=== PATIENT | male | born 1955 | race Caucasian/White ===

== ENCOUNTER 2017-04-13 10:42 | Emergency (ER) | payer MEDICARE, OTHER ==
[~2017-04-13] VITALS: Ht 172.7 cm; Wt 72.3 kg
[~2017-04-13 10:42] MED LIST: IVIG; LORA10TA7; METH2.5; PRED5PAK; SERT50
[2017-04-13 10:48] VITALS: BP 130/77; PULSE 80; RESP 18; TEMP 97.9; O2SAT 95
[2017-04-13] MEDS ORDERED: METO25TA3 PO (11:05)
[2017-04-13] MEDS ORDERED: LOSA50TA PO (11:05)
[2017-04-13] MEDS ORDERED: LEVO100T5 PO (11:05)
[2017-04-13] MEDS ORDERED: RANI150T PO (11:05)
[2017-04-13] MEDS ORDERED: PANT40TA3 PO (11:05)
[2017-04-13] MEDS ORDERED: PRED5TAB PO (11:05)
[2017-04-13] MEDS ORDERED: LEVO500T8 PO (11:05)
--- NOTE | 2017-04-13 11:20 | RADRPT ---
EXAM DATE/TIME: 04/13/2017 11:08 [place] COMPARISON: No previous studies available for comparison. INDICATIONS : Chronic pneumonia. Cough/congestion.fever. MEDICAL HISTORY : Hypercholesterolemia. Gastroesophageal reflux disease. Hypertension. Thyroid disease. Irregular h eart beat. Pneumonia. Chemotherapy. Tumor in neck. SURGICAL HISTORY : Pacemaker. Cholecystectomy. ENCOUNTER: Initial ACUITY: 3 days PAIN SCORE: 0/10 LOCATION: chest FINDINGS: The cardiac silhouette is normal in transverse diameter. A bipolar pacemaker is in place via a left s ided approach. There are probable chronic fibrotic changes bilaterally. There is no evidence of pneu monia. CONCLUSION: 1. There is no evidence of pneumonia. 2. Probable bibasilar fibrosis Wally Ventura MD on April 13, 2017 at 11:17 Board Certified Radiologist. This report was verified electronically.
[2017-04-13 11:25] LABS: BASOPHIL # 0.3 TH/MM3 (0-0.2); BASOPHIL % 2.9 % (0.0-2.0); EOSINOPHIL # 0.1 TH/MM3 (0-0.4); EOSINOPHIL % 0.7 % (0.0-4.0); HEMATOCRIT 45.7 % (39.0-51.0); HEMO FLAGS DIFF FINAL; LYMPH % 5.5 % (9.0-44.0); LYMPHOCYTE # 0.7 TH/MM3 (1.0-4.8); MEAN CELL VOLUME 88.8 FL (80.0-100.0); MEAN CORPUSCULAR HEMOGLOBIN 29.6 PG (27.0-34.0); MEAN CORPUSCULAR HGB CONC 33.4 % (32.0-36.0); MONO % 6.1 % (0.0-8.0); NEUT % 84.8 % (16.0-70.0); PLATELET COUNT 111 TH/MM3 (150-450); RED BLOOD COUNT 5.15 MIL/MM3 (4.50-5.90); RED CELL DISTRIBUTION WIDTH 14.9 % (11.6-17.2); WHITE BLOOD COUNT 11.8 TH/MM3 (4.0-11.0)
[2017-04-13 11:33] LABS: CHLORIDE 103 MEQ/L (98-107); SODIUM (NA) 137 MEQ/L (136-145)
[2017-04-13 11:37] LABS: ANION GAP 9 MEQ/L (5-15); BICARBONATE 25.3 MEQ/L (21.0-32.0); BLOOD UREA NITROGEN 16 MG/DL (7-18)
[2017-04-13 11:40] LABS: ALT (GPT) 48 U/L (12-78); AST (GOT) 41 U/L (15-37); GLOMERULAR FILTRATION RATE 76 ML/MIN (>89)
[2017-04-13 11:42] LABS: TOTAL BILIRUBIN ADULT 0.6 MG/DL (0.2-1.0)
[2017-04-13 11:43] LABS: ALKALINE PHOSPHATASE 137 U/L (45-117)
[2017-04-13 12:26] VITALS: BP 137/82; PULSE 75; RESP 16; O2SAT 95
[2017-04-13] MEDS ORDERED: cefTRIAXone INJ 1,000 MG in SODIUM CHLORIDE 0.9% INJ 100 ML IV ONE (12:30)
[2017-04-13] MEDS ORDERED: ZITHTAB PO (13:32)
--- NOTE | 2017-04-13 13:32 | PD ---
HPI Chief Complaint: Cold / Flu Symptoms Time Seen by Provider: 10:59 Travel History International Travel<30 days: No Contact w/Intl Traveler<30days: No Traveled to known affect area: No History of Present Illness HPI Patient is a 62-year-old male who comes to the ED because he believes he has pneumonia. He had neck cancer in 2002 and since then has had issues with his immune system and several episodes of pneumonia. He receives IVIG infusions every 10 weeks. He says he called his doctor in [place] who prescribed him Levaquin. He has been taking this for 3 days, but has not seen any improvements. He says he gets shaking chills, but has not taken his temperature. He says his symptoms have been going on for the past week. He says he has a cough, but he always has a cough. PFSH Past Medical History Heart Rhythm Problems: Yes Cancer: Yes (TUMOR BEHIND NECK-DERMATOCYSTIS) High Cholesterol: Yes Chemotherapy: Yes (FINISHED) Diminished Hearing: Yes (BILAT) GERD: Yes Hypertension: Yes Medical other: Yes (ON IVIG Q10M) Pneumonia: Yes Thyroid Disease: Yes Tetanus Vaccination: < 5 Years Influenza Vaccination: Yes Past Surgical History Cardiac Surgery: Yes Cholecystectomy: Yes Pacemaker: Yes Social History Alcohol Use: Yes (OCCAS) Tobacco Use: No Allergies-Medications (Allergen,Severity, Reaction): Coded Allergies: No Known Allergies (Verified Allergy, Mild, 04/13/17) Reported Meds & Prescriptions Reported Meds & Active Scripts Active Zithromax Z-Monroe (Azithromycin) 250 Mg Dspk 250 Mg PO DIRECTED 500 MG (2 tabs) day 1, then 1 tab days 2-5. Reported Ranitidine (Ranitidine HCl) 150 Mg Tab 150 Mg PO DAILY Prednisone 5 Mg Tab 5 Mg PO DAILY Pantoprazole (Pantoprazole Sodium) 40 Mg Tab 40 Mg PO DAILY Losartan (Losartan Potassium) 50 Mg Tab 50 Mg PO DAILY Metoprolol Tartrate 25 Mg Tab 25 Mg PO DAILY Levothyroxine (Levothyroxine Sodium) 100 Mcg Tab 100 Mcg PO DAILY Levofloxacin 500 Mg Tablet 500 Mg PO DAILY Review of Systems Except as stated in HPI: all other systems reviewed are Neg General / Constitutional: Positive: Chills, No: Fever HENT: No: Headaches, Lightheadedness Cardiovascular: No: Chest Pain or Discomfort Respiratory: Positive: Cough Gastrointestinal: No: Nausea, Vomiting Musculoskeletal: Positive: Myalgias, No: Edema Skin: No Rash, No Change in Pigmentation Neurologic: No: Weakness, Dizziness Physical Exam Narrative GENERAL: Awake and alert, in no acute distress. SKIN: Focused skin assessment warm/dry. HEAD: Atraumatic. Normocephalic. EYES: Pupils equal and round. No scleral icterus. ENT: Mucous membranes pink and moist. NECK: Trachea midline. No JVD. CARDIOVASCULAR: Regular rate and rhythm. No murmur appreciated. RESPIRATORY: No accessory muscle use. Crackles at both lung bases. Breath sounds equal bilaterally. GASTROINTESTINAL: Abdomen soft, non-tender, nondistended. MUSCULOSKELETAL: No obvious deformities. No clubbing. No cyanosis. No edema. NEUROLOGICAL: Awake and alert. No obvious cranial nerve deficits. Motor grossly within normal limits. Normal speech. PSYCHIATRIC: Appropriate mood and affect; insight and judgment normal. Data Data Last Documented VS Vital Signs Date Time Temp Pulse Resp B/P (MAP) Pulse Ox O2 Delivery O2 Flow Rate FiO2 04/13/17 13:40 04/13/17 12:26 75 16 95 Room Air 04/13/17 10:48 97.9 Orders Orders Iv Access Insert/Monitor (04/13/17 11:05) Complete Blood Count With Diff (04/13/17 11:05) Comprehensive Metabolic Panel (04/13/17 11:05) Chest, Pa & Lat (04/13/17 ) Ceftriaxone Inj (Rocephin Inj) (04/13/17 12:30) Ed Discharge Order (04/13/17 13:32) Labs Laboratory Tests Test 04/13/17 11:20 White Blood Count 11.8 TH/MM3 Red Blood Count 5.15 MIL/MM3 Hemoglobin 15.3 GM/DL Hematocrit 45.7 % Mean Corpuscular Volume 88.8 FL Mean Corpuscular Hemoglobin 29.6 PG Mean Corpuscular Hemoglobin Concent 33.4 % Red Cell Distribution Width 14.9 % Platelet Count 111 TH/MM3 Mean Platelet Volume 6.2 FL Neutrophils (%) (Auto) 84.8 % Lymphocytes (%) (Auto) 5.5 % Monocytes (%) (Auto) 6.1 % Eosinophils (%) (Auto) 0.7 % Basophils (%) (Auto) 2.9 % Neutrophils # (Auto) 10.0 TH/MM3 Lymphocytes # (Auto) 0.7 TH/MM3 Monocytes # (Auto) 0.7 TH/MM3 Eosinophils # (Auto) 0.1 TH/MM3 Basophils # (Auto) 0.3 TH/MM3 CBC Comment DIFF FINAL Differential Comment Blood Urea Nitrogen 16 MG/DL Creatinine 1.00 MG/DL Random Glucose 92 MG/DL Total Protein 8.2 GM/DL Albumin 3.5 GM/DL Calcium Level 8.5 MG/DL Alkaline Phosphatase 137 U/L Aspartate Amino Transf (AST/SGOT) 41 U/L Alanine Aminotransferase (ALT/SGPT) 48 U/L Total Bilirubin 0.6 MG/DL Sodium Level 137 MEQ/L Potassium Level 4.0 MEQ/L Chloride Level 103 MEQ/L Carbon Dioxide Level 25.3 MEQ/L Anion Gap 9 MEQ/L Estimat Glomerular Filtration Rate 76 ML/MIN [facility] Medical Decision Making Medical Screen Exam Complete: Yes Emergency Medical Condition: Yes Medical Record Reviewed: Yes Differential Diagnosis Pneumonia versus bronchitis versus URI Narrative Course Patient is a 62-year-old male who comes in because he says he has pneumonia. Patient has been on Levaquin for 3 days, but he says it's not working. Exam shows crackles at both lung bases. IV established, labs sent. Labs show a white blood count of 11.8. Chest x-ray shows no acute abnormalities. Patient is insistent that he needs Rocephin and a different antibiotic. X- rayed in that he likely is a virus. However, because he is insistent based on his history, he was given dose of Rocephin and discharged with a prescription for azithromycin. I advised him that unnecessary antibiotics can lead to resistance and they will not work for him when he needs them. He is very insistent that he needs these antibiotics. He is advised follow-up with his doctor. Diagnosis Primary Impression: Cough Patient Instructions: Acute Cough (ED), General Instructions, Upper Respiratory Infection (ED) Additional Instructions: Follow-up with your doctor. Take all of your antibiotic as prescribed. Return to the ED as needed for any worsening symptoms. Scripts Azithromycin (Zithromax Z-Monroe) 250 Mg Dspk 250 MG PO DIRECTED for Infection, #1 DSPK 0 Refills 500 MG (2 tabs) day 1, then 1 tab days 2-5. Prov: Roselyn Hurst MD 04/13/17 Disposition: 01 DISCHARGE HOME Condition: Stable Roselyn Hurst MD Apr 13, 2017 13:32
== END 2017-04-13 13:43 | disposition home or self-care (01) ==
LOC: PHED 10:42
DX: R05 Cough (principal); E78.00 Pure hypercholesterolemia, unspecified; I10 Essential (primary) hypertension; E07.9 Disorder of thyroid, unspecified; Z95.0 Presence of cardiac pacemaker
CPT/HCPCS: 71020; 80053; 85025; 96365; 99284; J0696